=== PATIENT | female | born 1980 | race Caucasian/White ===

== ENCOUNTER 2019-12-01 18:10 | Emergency (ER) | payer OTHER ==
[2019-12-01] MEDS ORDERED: CEFTRIAXONE 250 MG/VIAL ONE (21:03)
[2019-12-01] MEDS ORDERED: WATER FOR INJ,STERILE 10 ML ONE (21:03)
[2019-12-01] MEDS ORDERED: metroNIDAZOLE 500 MG TABLET ONE (21:03)
[2019-12-01] MEDS ORDERED: AZITHROMYCIN 250 MG TAB ONE (21:03)
--- NOTE | 2019-12-01 21:07 | EDPHYS ---
Physician Documentation [facility] Name: Ibeth Jarrett Age: 38 yrs Sex: Female : 1980 Arrival Date: 12/01/2019 Time: 18:13 Bed 8 Private MD: ED Physician Stephen Conrad HPI: 11/30 19:01 This 38 yrs old Female presents to ER via Ambulatory with complaints of STD jmm Exposure. 19:01 The patient presents with a possible exposure to a sexually transmitted disease, jmm herpes. Onset: The symptoms/episode began/occurred gradually, 1 week(s) ago. Modifying factors: The symptoms are alleviated by nothing, the symptoms are aggravated by urinating. Associated signs and symptoms: Pertinent positives: body aches. 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 - Social history:: Smoking status: Patient denies any tobacco usage or history of. ROS: 19:01 Cardiovascular: Negative for chest pain, palpitations, and edema, Respiratory: Negative jmm for shortness of breath, cough, wheezing, and pleuritic chest pain, Abdomen/GI: Negative for abdominal pain, nausea, vomiting, diarrhea, and constipation. 19:01 Constitutional: Positive for body aches, chills. 19:01 : Positive for urinary symptoms. 19:01 All other systems are negative. Exam: 19:01 Constitutional: This is a well developed, well nourished patient who is awake, alert, jmm and in no acute distress. Head/Face: atraumatic. Eyes: EOMI, no conjunctival erythema appreciated ENT: Moist Mucus Membranes Neck: Trachea midline, Supple Chest/axilla: Normal chest wall appearance and motion. Cardiovascular: Regular rate and rhythm. No edema appreciated Respiratory: Normal respirations, no respiratory distress appreciated Abdomen/GI: Non distended, soft Back: Normal ROM Skin: General appearance color normal 19:01 MS/ Extremity: Moves all extremities, no obvious deformities appreciated, no edema noted to the lower extremities Neuro: Awake and alert, normal gait Psych: Behavior is normal, Mood is normal, Patient is cooperative and pleasant 19:01 : Pelvic Exam: External exam: herpes lesions noted, Speculum exam: cervicitis present, os that is closed, a female state inspector was present for the exam. Vital Signs: 18:53 BP 129 / 96; Pulse 114; Resp 20; Temp 97.8(TE); Pulse Ox 100% on R/A; Weight 83.46 kg; ss Height 5 ft. 9 in. (175.26 cm); Pain 8/10; 20:30 BP 125 / 85; Pulse 82; Resp 16; Pulse Ox 99% ; rr5 21:28 BP 121 / 70; Pulse 85; Resp 17; Pulse Ox 99% ; rr5 18:53 Body Mass Index 27.17 (83.46 kg, 175.26 cm) ss MDM: 19:01 Patient medically screened. [facility] 21:05 Data reviewed: vital signs, nurses notes. Counseling: I had a detailed discussion with flor the patient and/or guardian regarding: the historical points, exam findings, and any diagnostic results supporting the discharge/admit diagnosis, lab results, the need for outpatient follow up, to return to the emergency department if symptoms worsen or persist or if there are any questions or concerns that arise at home. ED course: Patient treated for presumed herpetic infection. Patient advised to follow up with quality review specialist for further evaluation. Patient is otherwise given strict return precautions. Patient understood and agrees with the plan of care. . 11/30 19:24 Order name: GC (GONORR/CHLAMYDIA) Probe [facility] 11/30 20:45 Order name: HIV AG/AB SCREEN [facility] 11/30 20:56 Order name: Urine Microscopic Only [facility] 11/30 20:56 Order name: Urine Culture [facility] 11/30 19:24 Order name: Pelvic Exam Setup; Complete Time: 20:41 [facility] 11/30 19:24 Order name: Urine Dipstick-Ancillary (obtain specimen); Complete Time: 20:53 [facility] 11/30 21:03 Order name: Urine Dipstick--Ancillary (enter results) [facility] 11/30 21:03 Order name: Urine --Ancillary (enter results) [facility] Administered Medications: 21:05 Drug: Flagyl 2 grams Route: PO; rr5 21:29 Follow up: Response: Medication administered at discharge. rr5 21:06 Drug: AZITHromycin 1 grams Route: PO; rr5 21:29 Follow up: Response: No adverse reaction; Medication administered at discharge. rr5 21:08 Drug: Rocephin (cefTRIAXone) 250 mg Route: IM; Site: right deltoid; rr5 21:30 Follow up: Response: No adverse reaction; Medication administered at discharge. rr5 Disposition: 12/01 10:39 Co-signature as Attending Physician, Stephen Conrad MD I agree with the assessment and kavitha plan of care. Disposition: 12/01/19 21:07 Discharged to Home. 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 - Condition is Stable. - Discharge Instructions: Dysuria, Genital Herpes, Vaginitis. - Prescriptions for Tylenol- Codeine #3 300-30 mg Oral Tablet - take 1 tablet by ORAL route every 6 hours As needed; 12 tablet. Valtrex 1 g Oral Tablet - take 1 tablet by ORAL route every 12 hours for 10 days; 20 tablet. Bactrim DS 800- 160 mg Oral Tablet - take 1 tablet by ORAL route every 12 hours for 3 days; 6 tablet. - Medication Reconciliation Form, Thank You Letter, Antibiotic Education, Prescription Opioid Use form. - Follow up: Private Physician; When: 2 - 3 days; Reason: Recheck today's complaints, Continuance of care, Re-evaluation by your physician. Signatures: Dispatcher [employer] Stephen Torres MD MD cha Mickail, Joel, PA PA jmm Smirch, Shelby, RN RN ss Roque, Raymond, RN RN rr5 Corrections: (The following items were deleted from the chart) 11/30 20:44 19:37 HIV (1 ordered. [facility] 21:29 21:07 12/01/2019 21:07 Discharged to Home. Impression: Herpesviral [herpes simplex] rr5 infections; Dysuria; Vaginitis, vulvitis and vulvovaginitis in diseases classified elsewhere. Condition is Stable. Forms are Medication Reconciliation Form, Thank You Letter, Antibiotic Education, Prescription Opioid Use. Follow up: Private Physician; When: 2 - 3 days; Reason: Recheck today's complaints, Continuance of care, Re-evaluation by your physician. flor
--- NOTE | 2019-12-01 21:07 | ER ---
Nurse's Notes [facility] Name: Ibeth Jarrett Age: 38 yrs Sex: Female : 1980 Arrival Date: 12/01/2019 Time: 18:13 Bed 8 Private MD: Diagnosis: Herpesviral [herpes simplex] infections;Dysuria;Vaginitis, vulvitis and vulvovaginitis in diseases classified elsewhere Presentation: 11/30 18:53 Chief complaint: Patient states: "My cheated on my and I need to be tested." ss c/o vaginal discomfort since last night. Burning/ itching. Coronavirus screen: The patient has NOT traveled to a country currently being monitored by the [facility] within the last 14 days. Proceed with normal triage procedures. Ebola Screen: Patient denies exposure to infectious person. Patient denies travel to an Ebola-affected area in the 21 days before illness onset. Initial Sepsis Screen: Does the patient meet any 2 criteria? HR > 90 bpm. Does the patient have a suspected source of infection? No. Patient's initial sepsis screen is negative. Risk Assessment: Do you want to hurt yourself or someone else? Patient reports no desire to harm self or others. 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 - Social history:: Smoking status: Patient denies any tobacco usage or history of. Screenin:29 Abuse screen: Denies threats or abuse. Denies injuries from another. Nutritional rr5 screening: No deficits noted. Tuberculosis screening: No symptoms or risk factors identified. Fall Risk None identified. Total Murphy Fall Scale indicates No Risk (0-24 pts). Assessment: 20:25 General: Appears in no apparent distress. uncomfortable, Behavior is calm, cooperative, rr5 appropriate for age. 20:25 Neuro: Level of Consciousness is awake, alert, obeys commands, Oriented to person, rr5 place, time, situation, Appropriate for age. Cardiovascular: Capillary refill < 3 seconds Patient's skin is warm and dry. Respiratory: Airway is patent Respiratory effort is even, unlabored, Respiratory pattern is regular, symmetrical. GI: Abdomen is round. : Reports I want to be tested. vaginal discomfort. EENT: No signs and/or symptoms were reported regarding the EENT system. Derm: Skin is intact, is healthy with good turgor, Skin temperature is warm. Musculoskeletal: Circulation, motion, and sensation intact. Capillary refill < 3 seconds. 20:25 Pain: Complains of pain in vagina Quality of pain is described as discomfort. rr5 20:51 Reassessment: Patient appears in no apparent distress at this time. Patient is alert, rr5 oriented x 3, equal unlabored respirations, skin warm/dry/pink. awaiting for result. ED provider cancelled the wet prep test. 21:28 Reassessment: Patient appears in no apparent distress at this time. Patient is alert, rr5 oriented x 3, equal unlabored respirations, skin warm/dry/pink. discharge instruction given and explained without complaints made. Vital Signs: 18:53 BP 129 / 96; Pulse 114; Resp 20; Temp 97.8(TE); Pulse Ox 100% on R/A; Weight 83.46 kg; ss Height 5 ft. 9 in. (175.26 cm); Pain 8/10; 20:30 BP 125 / 85; Pulse 82; Resp 16; Pulse Ox 99% ; rr5 21:28 BP 121 / 70; Pulse 85; Resp 17; Pulse Ox 99% ; rr5 18:53 Body Mass Index 27.17 (83.46 kg, 175.26 cm) ED Course: 18:13 Patient arrived in ED. rg4 18:54 Triage completed. ss 18:55 Arm band placed on right wrist. 19:00 Shashi Spivey PA is PHCP. [facility] 19:00 Stephen Conrad MD is Attending Physician. [facility] 19:13 Guero Calderon RN is Primary Nurse. rr5 20:29 Patient has correct armband on for positive identification. Bed in low position. Call rr5 light in reach. Adult w/ patient. Pulse ox on. NIBP on. 20:30 Assist provider with pelvic exam: Set up pelvic tray. Performed by Shashi VILLALTA rr5 Specimens sent to lab. Patient tolerated well. chaperoned by gilda endoscopy technician. 20:35 Initial lab(s) drawn, by me, sent to lab. rr5 20:40 Urine collected: clean catch specimen, cloudy. rr5 21:28 Patient did not have IV access during this emergency room visit. rr5 Administered Medications: 21:05 Drug: Flagyl 2 grams Route: PO; rr5 21:29 Follow up: Response: Medication administered at discharge. rr5 21:06 Drug: AZITHromycin 1 grams Route: PO; rr5 21:29 Follow up: Response: No adverse reaction; Medication administered at discharge. rr5 21:08 Drug: Rocephin (cefTRIAXone) 250 mg Route: IM; Site: right deltoid; rr5 21:30 Follow up: Response: No adverse reaction; Medication administered at discharge. rr5 Outcome: 21:07 Discharge ordered by . flor 21:28 Discharged to home ambulatory. rr5 21:28 Condition: stable 21:28 Discharge instructions given to patient, Instructed on discharge instructions, follow up and referral plans. medication usage, Demonstrated understanding of instructions, follow-up care, medications, Prescriptions given X 3. 21:29 Patient left the ED. rr5 Signatures: Shashi Spivey PA PA jmm Smirch, Shelby, RN RN ss Garcia, Rubi rg4 Guero Calderon RN RN rr5 Corrections: (The following items were deleted from the chart) 20:32 20:25 Pain: Complains of pain in right side of the head Pain does not radiate. Pain rr5 currently is 5 out of 10 on a pain scale. Quality of pain is described as aching, Pain began gradually, Is intermittent, rr5 20:32 20:25 Neuro: Level of Consciousness is awake, alert, obeys commands, Oriented to rr5 person, place, time, situation, Appropriate for age Reports headache in right frontal area, rr5 20:32 20:25 GI: Abdomen is flat, Reports upper abdominal pain, vomiting, rr5 rr5 20:32 20:25 : Reports vaginal itching, rr5 rr5 20:51 20:25 : Reports I want to be tested. rr5 rr5 20:51 20:25 Pain: Denies pain. rr5 rr5
[2019-12-01 21:25] LABS: Urine Bacteria 20-50 /HPF (<20); Urine Culture Reflex Order NOT NEEDED; Urine RBC <5 /HPF (NONE SEEN)
[2019-12-01 21:52] VITALS: TEMP 97.8
[2019-12-01 21:53] VITALS: O2SAT 99
[2019-12-01 21:54] VITALS: BP 121/70
[2019-12-01 22:04] LABS: Urine Blood 2+ (NEG); Urine Glucose NEGATIVE (NEG); Urine Protein NEGATIVE (NEG)
[2019-12-04 15:02] LABS: HIV AG/AB 4TH GEN Non-reactive (Non-reactive)
[2019-12-04 16:33] LABS: C.trachomatis RNA,TMA Not Detected (Not Detected)
== END 2019-12-01 21:29 | disposition home or self-care (01) ==
LOC: ER 18:10
DX: B00.9 Herpesviral infection, unspecified (principal); N77.1 Vaginitis, vulvitis and vulvovaginitis in diseases classified elsewhere
CPT/HCPCS: 87088; 87086; 81025; 87389; 87590; 87490; 96372; 99284; J0696; 81003; 81015